=== PATIENT | female | born 1985 | race African-American/Black ===

== ENCOUNTER 2017-11-06 15:10 | Emergency (ER) | payer OTHER ==
[~2017-11-06] VITALS: Ht 167.6 cm; Wt 163.3 kg
[2017-11-06 15:26] LABS: URINE BILIRUBIN NEGATIVE (Negative); URINE BLOOD TRACE (Negative); URINE CLARITY CLEAR; URINE COLOR YELLOW; URINE GLUCOSE-RANDOM* NEGATIVE (Negative); URINE KETONES NEGATIVE (Negative); URINE LEUKOCYTES-REFLEX NEGATIVE (Negative); URINE NITRITE-REFLEX NEGATIVE (Negative); URINE PROTEIN (DIPSTICK) NEGATIVE (Negative); URINE SPECIFIC GRAVITY >= 1.030 (1.005-1.035); URINE UROBILINOGEN 0.2 E.U./dl (0.2-1.0)
[2017-11-06 16:42] LABS: ABSOLUTE NEUTROPHILS 2.5 thou/uL (1.4-8.2); BASOPHILS 1.2 % (0.0-2.0); EOSINOPHILS 3.3 % (0.0-3.0); HEMATOCRIT 39.6 % (37.0-47.0); HEMOGLOBIN 12.9 gm/dL (12.0-15.0); MCH 25.6 pg (26.0-34.0); MCHC 32.6 g/dL (28.0-37.0); MCV 78.5 fL (80.0-100.0); MONOCYTES 9.4 % (1.0-8.0); PLATELET COUNT 259 thou/uL (150-400); POLYS 38.1 % (36.0-66.0); RBC 5.04 mil/uL (4.20-5.00); RDW 14.7 % (10.5-14.5); WBC 6.4 thou/uL (4.0-11.0)
[2017-11-06 16:55] LABS: CALCIUM 9.2 mg/dL (8.5-10.1); CREATININE 0.7 mg/dL (0.6-1.0); POTASSIUM 4.1 mmol/L (3.5-5.1)
[2017-11-06 16:59] LABS: ALBUMIN 3.7 g/dL (3.4-5.0); TOTAL BILIRUBIN 0.2 mg/dL (<0.1-1.0); TOTAL PROTEIN 8.1 g/dL (6.4-8.2)
[2017-11-06] MEDS ORDERED: MOBIC7.5 MG PO (18:09)
[2017-11-06 18:24] VITALS: BP 143/73
[2017-11-09 15:11] LABS: NEISSERIA GONORRHEA-PCR Negative (Negative)
== END 2017-11-06 18:24 | disposition home or self-care (01) ==
LOC: ER 15:10
PROVIDERS: Physician Assistant
DX: R30.0 Dysuria (principal); N89.8 Other specified noninflammatory disorders of vagina

== ENCOUNTER 2018-04-24 22:56 | Emergency (ER) | payer OTHER ==
[~2018-04-24] VITALS: Ht 167.6 cm; Wt 147.0 kg
[~2018-04-24 22:56] MED LIST: MOBIC7.5 MG PO
[2018-04-24 23:27] LABS: ABSOLUTE NEUTROPHILS 2.9 thou/uL (1.4-8.2); BASOPHILS 0.6 % (0.0-2.0); EOSINOPHILS 2.6 % (0.0-3.0); HEMATOCRIT 38.1 % (37.0-47.0); HEMOGLOBIN 12.6 gm/dL (12.0-15.0); LYMPHOCYTES 44.2 % (24.0-44.0); MCH 25.9 pg (26.0-34.0); MCV 78.4 fL (80.0-100.0); MONOCYTES 9.4 % (1.0-8.0); PLATELET COUNT 256 thou/uL (150-400); POLYS 43.2 % (36.0-66.0); RBC 4.86 mil/uL (4.20-5.00); RDW 14.8 % (10.5-14.5); WBC 6.7 thou/uL (4.0-11.0)
[2018-04-24 23:35] LABS: CREATININE 0.7 mg/dL (0.6-1.0); POTASSIUM 3.5 mmol/L (3.5-5.1)
[2018-04-24 23:40] LABS: ALBUMIN 3.7 g/dL (3.4-5.0); TOTAL BILIRUBIN 0.2 mg/dL (<0.1-1.0); TOTAL PROTEIN 8.3 g/dL (6.4-8.2)
[2018-04-25] MEDS ORDERED: CARAFATE 1 GM TA1 G1 PO (00:19)
[2018-04-25] MEDS ORDERED: PROTONIX40 M1 PO (00:19)
[2018-04-25] MEDS ORDERED: ONDANSETRON HCL4 M2 PO (00:19)
[2018-04-25 00:52] LABS: URINE BILIRUBIN NEGATIVE (Negative); URINE BLOOD 3+ (Negative); URINE CLARITY CLEAR; URINE COLOR YELLOW; URINE GLUCOSE-RANDOM* NEGATIVE (Negative); URINE KETONES NEGATIVE (Negative); URINE LEUKOCYTES-REFLEX NEGATIVE (Negative); URINE NITRITE-REFLEX NEGATIVE (Negative); URINE PROTEIN (DIPSTICK) NEGATIVE (Negative); URINE UROBILINOGEN 0.2 E.U./dl (0.2-1.0)
[2018-04-25 00:59] LABS: BACTERIA-REFLEX 1-9 Few /HPF (None Seen); CASTS None Seen /LPF (None Seen); SQUAMOUS 0-3 Few /LPF (0-3); URINE RBC >20 Many /HPF (0-2); URINE WBC-REFLEX 0-5 Rare /HPF (0-5)
[2018-04-25 01:00] LABS: CRYSTALS None Seen /LPF (None Seen)
[2018-04-25 01:30] VITALS: BP 113/77
--- NOTE | 2018-04-26 08:18 | EKG ---
[place] [address] 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
== END 2018-04-25 01:30 | disposition home or self-care (01) ==
LOC: ER 22:56
PROVIDERS: Emergency Medicine
DX: R10.13 Epigastric pain (principal); F17.200 Nicotine dependence, unspecified, uncomplicated